=== PATIENT | female | born 2000 | race Caucasian/White ===

== ENCOUNTER 2022-01-10 21:40 | Emergency (ER) | payer MEDICAID ==
[~2022-01-10] VITALS: Ht 162.6 cm; Wt 60.3 kg
--- NOTE | 2022-01-10 21:40 | NUR ---
Patient taken from her car to Chair A via WC.
[2022-01-10 21:42] VITALS: BP 135/68
--- NOTE | 2022-01-10 21:52 | NUR ---
Dr. Carlson examining patient.
--- NOTE | 2022-01-10 22:21 | NUR ---
Blood for labwork drawn from right arm by circulation clerk. Patient tolerated well.
--- NOTE | 2022-01-10 22:44 | NUR ---
Patient taken to X-ray via WC.
[2022-01-10 22:46] LABS: ANION GAP 15.8 (8-16); CARBON DIOXIDE 25.4 mmol/L (21-32); CREATININE 0.6 mg/dL (0.6-1.3); POTASSIUM 4.2 mmol/L (3.5-5.1)
[2022-01-10 22:47] LABS: BASOPHILS % (AUTO) 0.3 % (0.0-2.0); EOSINOPHILS % (AUTO) 0.2 % (0.0-4.0); HEMATOCRIT 38.1 % (36-48); LYMPHOCYTES # (AUTO) 1.2 K/uL (2.5-16.5); LYMPHOCYTES % (AUTO) 11.2 % (20.5-51.1); MEAN CORPUSCULAR HEMOGLOBIN 32 pg (27-31); MEAN CORPUSCULAR HGB CONC 34 g/dL (33-37); MEAN CORPUSCULAR VOLUME 93.8 fL (80-94); MONOCYTES # (AUTO) 0.8 K/uL (0.8-1.0); NEUTROPHILS # (AUTO) 8.7 K/uL (1.8-7.7); NEUTROPHILS % (AUTO) 81.3 % (42.2-75.2); PLATELET COUNT (AUTO) 176 K/uL (140-450); RED BLOOD CELL COUNT(AUTO) 4.06 MIL/uL (4.20-5.40); RED CELL DISTRIBUTION WIDTH 13.4 % (11.6-13.7); WHITE BLOOD COUNT (AUTO) 10.7 K/uL (4.5-11.0)
--- NOTE | 2022-01-10 23:20 | NUR ---
Urine sample collected and sent to lab.
[2022-01-10 23:35] LABS: BARBITURATE, URINE NEGATIVE ng/ml (NEG <=200); BENZODIAZEPINE, URINE NEGATIVE ng/mL (NEG <=200); CANNABINOID, URINE POSITIVE ng/mL (NEG <=50); COCAINE, URINE POSITIVE ng/mL (NEG <=300); OPIATE, URINE NEGATIVE ng/mL (NEG <=2000); PHENCYCLIDINE SCREEN,URINE NEGATIVE ng/mL (NEG <=25)
[2022-01-10] MEDS ORDERED: ALBU0.0912 IH (23:44)
[2022-01-10 23:51] VITALS: BP 127/64
--- NOTE | 2022-01-10 23:51 | NUR ---
Patient discharged with v/s stable. Written and verbal after care instructions given and explained. Patient alert, oriented and verbalized understanding of instructions. Ambulatory with steady gait. All questions addressed prior to discharge. ID band removed. Patient advised to follow up with PMD. Rx of Proventil given. Patient educated on indication of medication including possible reaction and side effects. Opportunity to ask questions provided and answered.
--- NOTE | 2022-01-10 23:54 | NUR ---
Called patient's family for a ride.
== END 2022-01-10 23:51 | disposition home or self-care (01) ==
LOC: MED 21:40
DX: R55 Syncope and collapse (principal); J45.909 Unspecified asthma, uncomplicated; Z76.0 Encounter for issue of repeat prescription; Z88.6 Allergy status to analgesic agent; Z79.899 Other long term (current) drug therapy
CPT/HCPCS: 36415; 71045; 80048; 80305; 84484; 85025; 93005; 99285

== ENCOUNTER 2022-03-10 08:24 | Emergency (ER) | payer MEDICAID ==
[~2022-03-10] VITALS: Ht 165.1 cm; Wt 57.6 kg
[~2022-03-10 08:24] MED LIST: ALBU0.0912 IH
[2022-03-10 08:29] VITALS: BP 127/71
--- NOTE | 2022-03-10 08:35 | NUR ---
Pt walked in to ER with c/o vaginal bleeding, other than her menstrual cycle along with pain and painful intercourse. Denies any n/v or fevers at this time. Only medical history of Asthma. V/S stable.
--- NOTE | 2022-03-10 08:50 | NUR ---
Patient being evaluated by physician at bedside.
[2022-03-10 09:06] LABS: APPEARANCE,URINE CLEAR (CLEAR); BILIRUBIN,URINE NEGATIVE (NEGATIVE); BLOOD, URINE TRACE-I (NEGATIVE); COLOR,URINE YELLOW (YELLOW); LEUKOCYTE ESTERASE ,URINE NEGATIVE (NEGATIVE); NITRITE, URINE NEGATIVE (NEGATIVE); UGLUCOSE NEGATIVE (NEGATIVE)
[2022-03-10 09:19] LABS: RBC,URINE 0-5 /HPF (0-5); WBC,URINE 0-5 /HPF (0-5)
[2022-03-10 09:20] LABS: OTHER CASTS, URINE None Seen /LPF (None Seen)
[2022-03-10 09:46] VITALS: BP 127/71
--- NOTE | 2022-03-10 09:46 | NUR ---
Patient discharged with v/s stable. Written and verbal after care instructions given and explained to parent/guardian. Parent/Guardian verbalized understanding. Ambulatory steady gait. All questions addressed prior to discharge. Advised to follow up with PMD.
== END 2022-03-10 09:45 | disposition home or self-care (01) ==
LOC: MED 08:24
DX: N94.10 Unspecified dyspareunia (principal); N92.6 Irregular menstruation, unspecified; J45.909 Unspecified asthma, uncomplicated; Z88.5 Allergy status to narcotic agent
CPT/HCPCS: 81001; 81025; 99283